=== PATIENT | male | born 1945 | race Caucasian/White ===

== ENCOUNTER 2016-10-22 02:56 | Emergency (ER) | payer OTHER ==
[2016-10-22 03:10] VITALS: PULSE 70; RESP 16; TEMP 98.2; O2SAT 95
[2016-10-22 03:38] VITALS: BP 148/78
[2016-10-22] MEDS ORDERED: IBUPROFEN 600 MG TAB PO ONE (03:48)
--- NOTE | 2016-10-22 04:00 | EDPHY ---
H & P Stated Complaint: upper extremity stinging Time Seen by Provider: 10/22/16 03:33 HPI/ROS: Chief Complaint: Bilateral neck shoulder and arm pain HPI: 62-year-old male states that he was moving rocks in taking in his yd to build new deck all day yesterday. Patient woke this morning with pains in his bilateral neck upper back and arms. He has equal on both sides. He has had no numbness or weakness. He is not dropping things. Pain is not extend below his mid back. No fevers or chills. No other trauma. Does not have a history of the same. No chest pain or shortness of breath. No midline neck pain. No falls or traumatic injuries. He is not taking any medications for this. ROS: 10 point Review of Systems is negative except as noted in the HPI. PMH: Denies Medications: Denies Allergies: Sulfa Social History: No smoking, no alcohol, no recreational drug use Family History: non-contributory Physical Exam: Gen: Awake, Alert, No Distress HEENT: Nose: no rhinorrhea Eyes: PERRLA, EOMI Mouth: Moist mucosa Neck: Supple, no JVD, no midline tenderness. He has got tenderness in the bilateral trapezius muscles extending from his cervical spine bilaterally over into his shoulders. Chest: nontender, lungs clear to auscultation Heart: S1, S2 normal, no murmur Abd: Soft, non-tender, no guarding Back: no CVA tenderness, no midline tenderness Ext: no edema, mild to moderate tenderness in the bilateral biceps and triceps. He has full flexion extension of his foot bilateral upper extremities in all joints in all muscle groups. Sensations intact in all dermatomes. There is no erythema. It is not warm to touch. Skin: no rash Neuro: CN II-XII intact, Sensation grossly intact, Strength 5/5 in bilateral upper and lower extremities - Personal History Current Tetanus/Diphtheria Vaccine: Yes Current Tetanus Diphtheria and Acellular Pertussis (TDAP): Yes Tetanus Vaccine Date: 2012 - Medical/Surgical History Hx Asthma: Yes Hx Chronic Respiratory Disease: No Hx Diabetes: No Hx Cardiac Disease: No Hx Renal Disease: No Hx Cirrhosis: No Hx Alcoholism: No Hx HIV/AIDS: No Hx Splenectomy or Spleen Trauma: No Other PMH: asmthma, hypothyroid, hernia repair - Social History Smoking Status: Never smoked Constitutional: Initial Vital Signs Temperature (C) 36.8 C 10/22/16 03:05 Heart Rate 70 10/22/16 03:05 Respiratory Rate 16 10/22/16 03:05 Blood Pressure 141/74 H 10/22/16 03:05 O2 Sat (%) 95 10/22/16 03:05 O2 Delivery Mode Room Air Allergies/Adverse Reactions: Sulfa (Sulfonamide Antibiotics) Allergy (Verified 06/25/16 06:34) Home Medications: Medication Instructions Recorded Naproxen 11/07/13 Ventolin Hfa Inhaler 06/25/16 Synthroid 100 mcg (*) 10/22/16 Medical Decision Making ED Course/Re-evaluation: 62-year-old male presenting with myalgias secondary to shaving working garden yesterday. He also did not drink adequate amounts of fluid. He has complete no neurologic findings whatsoever at this time. He has reproducible muscle tenderness. He is not taking any medications. I have recommended nonsteroidals and acetaminophen. He is refusing any medications here with her further take them at home. He will follow up with his doctor next 2 days for re -evaluation, return for worsening. - Data Points Medications Given: Discontinued Medications Ibuprofen (Motrin) 600 mg PO EDNOW ONE Stop: 10/22/16 03:49 Last Admin: 10/22/16 03:56 Dose: 600 mg Departure - Departure Disposition: Home, Routine, Self-Care Clinical Impression: Myalgia Condition: Good Instructions: Musculoskeletal Pain (ED) Additional Instructions: You may alternate ibuprofen with acetaminophen every 4 hours as needed for aches and pains. Make sure to drink plenty of water especially in your working outdoors. Follow up with primary care physician in 2-3 days for re-evaluation. Return to the emergency depart for increasing pain, numbness, weakness, fevers, chills, or any other concerns. Referrals: CATIA KENDRICK [Primary Care Provider] - As per Instructions
== END 2016-10-22 04:14 | disposition home or self-care (01) ==
DX: M79.1 Myalgia (principal); J45.909 Unspecified asthma, uncomplicated